=== PATIENT | female | born 1960 ===

== ENCOUNTER 2021-11-19 14:31 | Outpatient (CLI) | payer OTHER | END 2021-11-19 14:32 | disposition home or self-care (01) | LOC: LABHHL 14:31 | PROVIDERS: ATTEND Otolaryngology Otology & Neurotology | DX: J32.2 Chronic ethmoidal sinusitis (principal); J32.0 Chronic maxillary sinusitis; J34.3 Hypertrophy of nasal turbinates | CPT/HCPCS: 88305; 88311 ==